=== PATIENT | female | born 1990 | race Caucasian/White ===

== ENCOUNTER → 2017-12-28 | Outpatient (CLI) | payer BC ==
[~2017-12-28] MED LIST: MTR600X PO; PRENTAB26 PO
== END | disposition home or self-care (01) ==
LOC: C.LABSPEC 17:54
PROVIDERS: ATTEND Obstetrics & Gynecology
DX: Z34.81 Encounter for supervision of other normal pregnancy, first trimester (principal)

== ENCOUNTER → 2018-01-09 | Outpatient (CLI) | payer BC ==
[2018-01-09 16:42] LABS: BASO % 0.5 %; BASO ABS # 0.04 K/uL (0-0.2); EOS % 0.7 %; EOS ABS # 0.06 K/uL (0-0.5); HEMATOCRIT 39.6 % (37-47); HEMOGLOBIN 12.7 g/dL (12.0-16.0); IG# 0.03 K/uL (0.00-0.02); LYMPH % 21.6 %; MEAN CELL VOLUME 82.3 fL (80-100); MEAN CORPUSCULAR HEMOGLOBIN 26.4 pg (25-34); MEAN CORPUSCULAR HGB CONC 32.1 g/dl (32-36); MEAN PLATELET VOLUME 9.1 fL (7.4-10.4); MONO % 7.8 %; MONO ABS # 0.65 K/uL (0.11-0.59); NEUT ABS # 5.77 K/uL (1.4-6.5); PLATELET COUNT 297 K/uL (130-400); RED CELL DISTRIBUTION WIDTH CV 15.1 % (11.5-14.5); RED CELL DISTRIBUTION WIDTH SD 45.2 fL (36.4-46.3); WHITE BLOOD COUNT 8.35 K/uL (4.8-10.8)
== END | disposition home or self-care (01) ==
LOC: C.LAB1850 15:13
PROVIDERS: ATTEND Obstetrics & Gynecology
DX: Z34.81 Encounter for supervision of other normal pregnancy, first trimester (principal)

== ENCOUNTER 2018-08-14 18:06 | Inpatient (IN) ==
[2018-08-14] MEDS ORDERED: LACTATED RINGER'S 1,000 ML IV PRN ×2 (19:54→21:14)
[2018-08-14] MEDS ORDERED: LACTATED RINGER'S 1,000 ML IV SCH (20:00)
[2018-08-14 20:11] LABS: Hematocrit (blood only) 39.3 % (37-47); Hemoglobin 13.2 g/dL (12.0-16.0); Mean Corpuscular Volume 84.2 fL (80-100); Mean Platelet Volume 10.1 fL (7.4-10.4); Platelet Count 295 K/uL (130-400); RDW Standard Deviation 42.9 fL (36.4-46.3); Red Blood Count 4.67 M/uL (4.2-5.4); White Blood Count 16.29 K/uL (4.8-10.8)
[2018-08-14 20:15] LABS: Mean Corpuscular Hgb Conc 33.6 g/dL (32-36)
[2018-08-14] MEDS ORDERED: ePHEDrine sulfate 50 MG/ML AMP ONE (20:34)
[2018-08-14] MEDS ORDERED: BUPIVACAINE 0.25% 30 ML VIAL ONE (20:34)
[2018-08-14] MEDS ORDERED: fentaNYL citrate 100 MCG/2 ML VIAL ONE (20:34)
[2018-08-14] MEDS ORDERED: fentaNYL 2MCG/ML ROPIV 1.25MG/ML 100 ML BAG EPI ONE (20:35)
--- NOTE | 2018-08-14 21:11 | Anesthesiology Consultation ---
Date of Service August 14, 2018 Assessment & Plan (1) Encounter for pre-operative examination: Chart Review Chart Review: Acceptable Risk for Surgery and Patient NOT seen in Pre Admission Testing Consults Requested none History Height/Weight Height: 5 ft 6 in Weight: 104.78 kg Allergies Allergy/AdvReac Type Severity Reaction Status Date / Time codeine Allergy Unknown rash, Verified 01/11/16 13:15 pruritis fentanyl Allergy Unknown rash Verified 01/11/16 13:15 hydrocodone Allergy Unknown rash, Verified 01/11/16 13:15 pruritis meperidine Allergy Unknown PASSED OUT Verified 01/11/16 13:15 morphine Allergy Unknown 'throat Verified 01/11/16 13:15 swelled', pruritis oxycodone Allergy Unknown rash, Verified 01/11/16 13:15 pruritis Sulfa (Sulfonamide Allergy Unknown rash, Verified 01/11/16 13:15 Antibiotics) pruritis Medications Home Medications Medication Instructions Recorded Confirmed Last Taken vit-iron fum-folic ac 1 tab PO DAILY 08/01/18 08/14/18 08/12/18 21:00 [ Vitamin] Active Medications Generic Name Dose Route Start Last Admin Trade Name Freq PRN Reason Stop Dose Admin Lactated Ringer's 1,000 mls @ 999 mls/hr 08/14/18 19:54 08/14/18 19:20 Lr IV 09/13/18 19:53 999 mls/hr .Q1H1M PRN Administration (Pre-Anesthesia) Lactated Ringer's 1,000 mls @ 125 mls/hr 08/14/18 20:00 08/14/18 20:40 Lr IV 08/16/18 19:59 125 mls/hr .Q8H REGULO Administration Past Medical History fibromyalgia Past Surgical History Surgical History Hx of cholecystectomy Hx of tonsillectomy Past Anesthesia History No Hx of Anesthesia Complications and No Family Hx of Anesthesia Complications History of PONV No Motion Sickness Screening History of Motion Sickness: No Social History Smoking Status: Never smoker Do You Dip or Chew Tobacco: No Hx Alcohol Use: No Hx Substance Use: No substance use type: does not use Exercise / Class Metabolic Activity II 4-5 Yardwork/Stairs/Walk up hill Physical Exam Vital Signs Last Vital Signs Temp 36.7 C 08/14/18 19:26 Pulse 78 08/14/18 19:22 Resp 18 08/14/18 19:26 BP 131/97 08/14/18 19:22 Testing Laboratory Results 08/14/18 19:59 08/14/18 19:58 POC Glucose 94
[2018-08-14] MEDS ORDERED: NALOXONE HCL 0.4 MG/1 ML VIAL/CARP IV PRN (21:14)
[2018-08-14] MEDS ORDERED: fentaNYL 2MCG/ML ROPIV 1.25MG/ML 100 ML BAG EPI PRN (21:14)
[2018-08-14] MEDS ORDERED: ONDANSETRON INJ 2 MG/ML 2 ML VIAL IV PRN (21:14)
[2018-08-14] MEDS ORDERED: ePHEDrine sulfate 50 MG/ML AMP IV PRN (21:14)
[2018-08-14] MEDS ORDERED: DiphenhydrAMINE HCL 50 MG/ML VIAL IV PRN (21:14)
[2018-08-14] MEDS ORDERED: NALOXONE HCL 1 MG in SODIUM CHLORIDE 0.9% 1000ML 1,000 ML IV PRN (21:14)
[2018-08-14] MEDS ORDERED: HCL EPI PRN (21:28)
[2018-08-14] MEDS ORDERED: ROPIVACAINE 0.5% EPI PRN (21:28)
[2018-08-15] MEDS: OXYTOCIN 30 UNITS/500 ML BAG IV PRN ×2 (00:11→00:55)
[2018-08-15] MEDS ORDERED: OXYTOCIN 30 UNITS/500 ML BAG IV PRN (01:19)
[2018-08-15] MEDS ORDERED: HYDROCORTISONE ACETATE 25 MG SUPP PR PRN (01:19)
[2018-08-15] MEDS ORDERED: SUPERCREAM 0.870% 15 GM JAR EXT PRN (01:19)
[2018-08-15] MEDS ORDERED: BENZOCAINE 20% AER SPR 82.5 GM CAN EXT PRN (01:19)
[2018-08-15] MEDS ORDERED: DIPHTHERIA/TETANUS/PERTUSSIS 0.5 ML SYR/VIAL IM ONE (01:19)
[2018-08-15] MEDS ORDERED: BISACODYL 10 MG SUPP PR PRN (01:19)
[2018-08-15] MEDS: IBUPROFEN 600 MG TAB PO PRN ×4 (04:24→20:20)
--- NOTE | 2018-08-15 07:46 | Anesthesia Procedure Note ---
Date of Service August 15, 2018 Anesthesia Post Epidural Note Vital Signs Vital Signs: Temp Pulse Resp BP Pulse Ox 36.9 C 86 18 117/59 L 96 08/15/18 03:10 08/15/18 03:10 08/15/18 03:10 08/15/18 03:10 08/15/18 01:24 Pain Intensity Lower Abdomen: Pain Intensity: 3 Notes Mental Status: alert / awake / arousable and participated in evaluation Nausea / Vomiting: adequately controlled Pain: adequately controlled Airway Patency, RR, SpO2: stable & adequate BP & HR: stable & adequate Hydration State: stable & adequate Neuraxial Anesthesia: was administered and sensory block is resolving Anesthetic Complications: no major complications apparent and Pt Satisfied with anesthetic care Epidural: Removed without complications and With tip intact
[2018-08-15 08:10] VITALS: O2SAT 97
[2018-08-15] MEDS: PRENATAL VITAMIN 1 TAB PO SCH (09:04)
[2018-08-15] MEDS: DOCUSATE SODIUM 100 MG CAP PO SCH ×2 (09:04→20:20)
[2018-08-16] MEDS: IBUPROFEN 600 MG TAB PO PRN ×2 (01:12→06:31)
[2018-08-16] MEDS: ACETAMINOPHEN 325 MG TAB PO PRN ×2 (01:12→06:45)
--- NOTE | 2018-08-16 06:20 | Obstetrical Progress Note ---
Date of Service August 16, 2018 Assessment & Plan (1) (spontaneous vaginal delivery): -vital signs reviewed and WNL -last Hgb 13.2 -Blood type: A+, GBS-, Rubella Immune -pt doing well clinically -encourage ambulation, monitor and control pain with motrin tylenol, cont regular diet, monitor lochia -cont encourage breast feeding Subjective 28 y/o PPD1 found in bed this morning in NAD. Reports no acute overnight events. Pt states that she has no pain other than appropriate soreness. Tolerating PO intake without N/V. Able to ambulate without issue. She is breast feeding without issue. No issues with voiding, no BM yet. No other acute concerns or complaints. Review of Systems All systems reviewed & are unremarkable except as noted in HPI & below Physical Exam Vital Signs (Past 24 Hours) Last Vital Signs Temp 36.9 C 08/16/18 00:45 Pulse 67 08/16/18 00:45 Resp 16 08/16/18 00:45 BP 118/76 08/16/18 00:45 Pulse Ox 97 08/15/18 08:00 Constitutional WD/WN, vitals as above Eyes PERRL, conjunctivae normal, anicteric sclerae ENMT external ear and nose normal, oropharynx normal Respiratory normal respiratory effort, lungs clear to auscultation Cardiovascular RRR, no murmur, no edema Gastrointestinal (Abdomen) mild abd tenderness Skin no rashes, warm and dry Psychiatric A+Ox3, euthymic affect Lymphatic no LE swelling, no calf tenderness Results & Data Medications Administered Current Inpatient Medications Acetaminophen (Tylenol) 650 mg PO Q6H PRN PRN Reason: Pain/TEJEDA/Fever Stop: 09/14/18 01:18 Last Admin: 08/16/18 01:12 Dose: 650 mg Documented by: Benzocaine (Dermoplast Pain Relieving Catron) 1 appln EXT PRN PRN PRN Reason: Perineal Discomfort Stop: 09/14/18 01:18 Bisacodyl (Dulcolax) 5 mg PO 1999 REGULO Stop: 08/16/18 20:01 Bisacodyl (Dulcolax) 10 mg GA DAILY PRN PRN Reason: No BM on 2nd post- day Stop: 09/14/18 01:18 Cocaine HCl (Supercream 0.870%) 1 gm EXT BID PRN PRN Reason: Hemorrhoidal Inflammation Stop: 08/29/18 01:18 Docusate Sodium (Colace) 100 mg PO BID [facility] Stop: 09/14/18 08:59 Last Admin: 08/15/18 20:20 Dose: 100 mg Documented by: Hydrocortisone (Anusol Hc) 25 mg GA BID PRN PRN Reason: Hemorrhoidal Inflammation Stop: 09/14/18 01:18 Oxytocin (Pitocin) 30 units in 500 mls @ 333.333 mls/hr IV .Q1H30M PRN; Protocol PRN Reason: BLEEDING CONTROL Ibuprofen (Motrin) 600 mg PO Q4H PRN PRN Reason: Pain/TEJEDA/Cramping/Fever Stop: 09/14/18 01:18 Last Admin: 08/16/18 01:12 Dose: 600 mg Documented by: Heather Multivit/[place]/Iron/Folic Ac ( Vitamin) 1 tab PO QAM [facility] Stop: 09/14/18 08:59 Last Admin: 08/15/18 09:04 Dose: 1 tab Documented by: Resident Activity Tracking Resident Involvement: Resident Care Provided Care Provided: OB Delivery
[2018-08-16 07:02] LABS: Hematocrit (blood only) 35.9 % (37-47); Hemoglobin 11.6 g/dL (12.0-16.0); Mean Corpuscular Hgb Conc 32.3 g/dL (32-36); Mean Corpuscular Volume 85.3 fL (80-100); Mean Platelet Volume 10.3 fL (7.4-10.4); Platelet Count 236 K/uL (130-400); RDW Coefficient of Variation 14.4 % (11.5-14.5); RDW Standard Deviation 44.4 fL (36.4-46.3); Red Blood Count 4.21 M/uL (4.2-5.4); White Blood Count 10.75 K/uL (4.8-10.8)
[2018-08-16] MEDS: PRENATAL VITAMIN 1 TAB PO SCH (08:51)
[2018-08-16] MEDS: DOCUSATE SODIUM 100 MG CAP PO SCH (08:51)
[2018-08-16 09:47] VITALS: BP 130/82; PULSE 77; TEMP 98.2
[2018-08-16] MEDS ORDERED: BISACODYL 5 MG TABEC PO SCH (20:00)
--- NOTE | 2018-08-23 10:46 | Delivery Summary ---
DATE OF OPERATION: 08/15/2018 PROCEDURES: Normal spontaneous vaginal delivery, second-degree laceration repair. SURGEON: Last Talbert MD PREOPERATIVE DIAGNOSES: 1. Single intrauterine at 39 weeks 6 days gestational age. 2. A1 gestational diabetes. POSTOPERATIVE DIAGNOSES: 1. Single intrauterine at 39 weeks 6 days gestational age. 2. A1 gestational diabetes. 3. Delivered. ESTIMATED BLOOD LOSS: 300 mL. DRAINS: None. FLUIDS: Continuous lactated ringer. URINE OUTPUT: Not measured. COMPLICATIONS: None. FINDINGS: Viable with weight and Apgars per EMR. INDICATIONS: Ms. Pro is a 28-year-old G2, P1-0-0-1 admitted at 39 weeks 5 days gestational age in labor. The patient underwent artificial rupture of membranes for clear fluid and received an epidural for anesthesia and to continue to progress in labor without complication. DESCRIPTION OF PROCEDURE: The patient progressed to 10 cm dilated, 100% effaced, positive 3 station, pushed over intact perineum with epidural anesthesia and found a viable with weight and Apgars as per EMR. The head of the delivered in DION position and rest into left transverse. No nuchal cord was noted. The body and shoulders quickly followed. was noted to be vigorous soon after delivery and a 1-minute delay cord clamping was initiated. The cord was then double clamped and cut. Attention was then turned to the delivery of the placenta which was delivered intact, 3-vessel with gentle cord traction. On inspection of the perineum, cervix and vagina, there was noted to be a second-degree perineal laceration. This was repaired in the traditional fashion with 3-0 Vicryl. Needle, sponge and instrument counts were correct at the completion of the case. I attest to the content of the Intraoperative Record and any orders documented therein. Any exception s are noted below.
== END 2018-08-16 14:00 | disposition home or self-care (01) | DRG 807 ==
LOC: OPB 18:06 → 4S2 18:08